=== PATIENT | male | born 1960 | race Caucasian/White ===

== ENCOUNTER 2019-01-01 03:43 | Inpatient (IN) ==
[2018-12-20 07:05] LABS: URINE SOURCE VOIDED
[2018-12-20 07:07] LABS: BASO# 0.01 X1000 (0.0-0.2); BASO% 0.2 % (0.0-0.8); EOS# 0.12 X1000 (0.0-0.7); EOS% 2.2 % (0.0-10.0); HEMATOCRIT 41.4 % (42.0-52.0); LYMPH# 1.69 X1000 (1.2-3.4); LYMPH% 31.6 % (20.5-51.1); MCH 32.8 PG (27-31); MCHC 36.2 g/dL (33-37); MCV 90.6 FL (81-99); MONO# 0.39 X1000 (0.11-0.59); MONO% 7.3 % (1.7-9.3); MPV 8.7 FL (7.4-10.4); NEUT# 3.13 X1000 (1.4-6.5); NEUT% 58.7 % (42.2-75.2); PLT 216 X1000 (130-400); RBC 4.57 XMIL (4.7-6.1); RDW 12.7 % (11.5-14.5); WBC 5.34 X1000 (4.8-10.8)
[2018-12-20 07:10] LABS: BILIRUBIN URINE NEGATIVE (NEGATIVE); BLOOD URINE TRACE (NEGATIVE); COLOR YELLOW; GLUCOSE URINE NEGATIVE (NEGATIVE); KETONE URINE NEGATIVE (NEGATIVE); LEUKOCYTES URINE TRACE (NEGATIVE); NITRITE URINE NEGATIVE (NEGATIVE); PH URINE 6.5; PROTEIN URINE NEGATIVE (NEGATIVE); SP GRAVITY URINE 1.018; TURBIDITY URINE CLEAR (CLEAR); UROBILINOGEN URINE NORMAL (NORMAL)
[2018-12-20 07:11] LABS: UR EPITHELIAL CELLS <10 /HPF (<10); URINE BACTERIA 1+ /HPF; URINE RBC <10 /HPF (<10)
--- NOTE | 2018-12-20 07:12 | EKG Report ---
Test Performed on : 12/20/2018 06:54:41 AM Test Reason : PAT Blood Pressure : / mmHG Vent. Rate : 064 BPM Atrial Rate : 064 BPM P-R Int : 182 ms QRS Dur : 090 ms QT Int : 408 ms P-R-T Axes : 041 050 037 degrees QTc Int : 420 ms Normal sinus rhythm. Normal ECG When compared with ECG of 21-JUN-2018 07:41, No significant change was found Confirmed by Gurwinder GONZALEZ, Fred Palma ([id number]) on 12/20/2018 1:40:53 PM
[2018-12-20 07:14] LABS: INR 0.99; PROTIME 13.9 Seconds (11.0-16.0)
[2018-12-20 07:15] LABS: PTT 32.4 Seconds (22.3-41.8)
[2019-01-01] MEDS ORDERED: REGLAN ONE (06:04)
[2019-01-01] MEDS ORDERED: PEPCID ONE (06:04)
[2019-01-01] MEDS ORDERED: COLACE ONE (06:04)
[2019-01-01] MEDS ORDERED: CELEBREX ONE (06:05)
[2019-01-01] MEDS ORDERED: LYRICA ONE (06:05)
[2019-01-01] MEDS ORDERED: KEFZOL 1 GM/D5W 2 GM/100 ML IVPB ONE (06:05)
[2019-01-01] MEDS ORDERED: LR 1,000 ML ONE (06:05)
[2019-01-01] MEDS ORDERED: VERSED ONE ×2 (06:20→07:55)
[2019-01-01] MEDS ORDERED: FENTANYL ONE (06:20)
[2019-01-01] MEDS ORDERED: DIPRIVAN 1% ONE ×3 (06:20→08:55)
[2019-01-01] MEDS ORDERED: XYLOCAINE-MPF 2% ONE (06:22)
[2019-01-01] MEDS ORDERED: BENADRYL IV ONE (06:45)
[2019-01-01] MEDS ORDERED: BENADRYL ONE ×3 (06:54→10:42)
[2019-01-01] MEDS ORDERED: EPINEPHRINE ONE (06:54)
[2019-01-01] MEDS ORDERED: NEOSPORIN G.U. IRRIGANT ONE (06:57)
[2019-01-01] MEDS ORDERED: EXPAREL 1.3% ONE (06:57)
[2019-01-01] MEDS ORDERED: SENSORCAINE-MPF 0.5%/EPI 1:200,000 ONE (06:57)
[2019-01-01] MEDS ORDERED: TORADOL ONE (06:57)
[2019-01-01] MEDS ORDERED: DURAMORPH ONE (06:57)
[2019-01-01] MEDS ORDERED: CYKLOKAPRON 1,000 MG/NS 1,000 MG/100 ML IVPB ONE (06:57)
[2019-01-01] MEDS ORDERED: SODIUM CHLORIDE 0.9% ONE (06:57)
[2019-01-01 08:26] LABS: URINE SOURCE CATH
[2019-01-01] MEDS ORDERED: EPHEDRINE ONE (08:29)
[2019-01-01] MEDS ORDERED: OFIRMEV 1000 MG/ISOTONIC SOLN 1,000 MG/100 ML BOTTLE ONE (08:33)
[2019-01-01] MEDS ORDERED: ZOFRAN ONE (08:40)
[2019-01-01] MEDS ORDERED: DECADRON ONE (08:40)
[2019-01-01 08:42] LABS: BILIRUBIN URINE NEGATIVE (NEGATIVE); BLOOD URINE NEGATIVE (NEGATIVE); COLOR YELLOW; GLUCOSE URINE NEGATIVE (NEGATIVE); KETONE URINE NEGATIVE (NEGATIVE); LEUKOCYTES URINE NEGATIVE (NEGATIVE); NITRITE URINE NEGATIVE (NEGATIVE); PROTEIN URINE NEGATIVE (NEGATIVE); SP GRAVITY URINE 1.017; TURBIDITY URINE CLEAR (CLEAR); UROBILINOGEN URINE NORMAL (NORMAL)
[2019-01-01 08:44] LABS: UR EPITHELIAL CELLS <10 /HPF (<10); URINE BACTERIA NEGATIVE /HPF; URINE RBC <10 /HPF (<10); URINE WBC <10 /HPF (<10)
--- NOTE | 2019-01-01 10:06 | OPERATIVE NOTE ---
PROCEDURE DATE: 01/01/2019 PREOPERATIVE DIAGNOSIS: Left hip degenerative joint disease. POSTOPERATIVE DIAGNOSIS: Left hip degenerative joint disease. PROCEDURE PERFORMED: Left anterior total hip arthroplasty using [facility] size 11 high offset stem with a neutral neck length, 36 mm Biolox Delta Head, a hemispherical shell with two 6.5 cancellous screws superiorly of 40 and 30 mm, and a 36 mm inside diameter liner. ANESTHESIA: Spinal. SURGEON: Mart Fregoso MD. METAL SANDER: Venecia Feliz PA-C, who was present throughout the case. Her assistance was critical for exposure, placement implants, and wound closure. Her assistance greatly reduced anesthesia and operative time and improved efficiency in the OR. BLOOD LOSS: Minimal. DESCRIPTION OF PROCEDURE: The patient was brought to the operative suite and placed in supine position. After successful administration of spinal anesthesia, patient was placed on the OSI table in the usual position for left hip. The left hip was then prepped and draped in the usual sterile fashion. A longitudinal incision was made, beginning 3 cm distal and 3 cm lateral to the anterior superior iliac spine extending distally and slightly laterally 8 cm, dissected sharply through skin and subcutaneous tissue down to the tensor fascia. Tensor fascia was incised and dissected bluntly down deep tensor fascia. Deep tensor fascia was incised, and circumflex vessels were electrocauterized exposing the anterior capsule. A T capsulotomy was performed exposing the femoral neck. The femoral neck cut was made with an oscillating saw. The femoral head was removed with a power corkscrew. The labrum was resected. The acetabulum was serially reamed to 58 to accept a 58 cup. The 58 cup was then driven into place to proper amount of inclination and anteversion and two 6.5 cancellous screws of a 40 mm superiorly and 30 mm posterior-superiorly were placed and the 36 mm inside diameter acetabular liner was locked onto the shell. Attention was then directed to the femur. The femur was externally rotated, extended, adducted, and elevated out of the way with the hook on the OSI bed. The lateral neck was rongeured. The canal was serially broached to a size 11. A size 11 high offset neutral neck length 36 mm head was trialed, and found to be excellent leg length offset, and fit and fill of the stem and stability the hip. The hip was then dislocated. The definitive stem was seated on the femur, and the head was seated on the Cedeno taper. It was again reduced. It was again found to be in excellent position. The hip was copiously irrigated with normal saline containing irrigant, and then Vashe irrigation. The hip was copiously infiltrated with Exparel, including the posterior capsule, anterior capsule, anterior musculature, and subcutaneous tissue. A drain was placed deep to the tensor fascia. The anterior capsule was repaired with 0 V-Loc suture the tensor fascia was closed with a 0 V-Loc suture. Skin edge approximated with 2-0 Vicryl. Skin was closed with 4-0 Monocryl and a Prineo dressing. A sterile dressing was applied. The patient tolerated the procedure well without complication. At the end the procedure, all counts correct x2. The patient was transferred to the recovery room in stable condition. cc: Mart Fregoso MD
[2019-01-01] MEDS ORDERED: NS 1,000 ML ONE (10:22)
[2019-01-01] MEDS ORDERED: ZOFRAN IV PRN (11:37)
[2019-01-01] MEDS ORDERED: MORPHINE IV PRN (11:37)
[2019-01-01] MEDS ORDERED: VANCOMYCIN 1 GM/NS 1 GM/250 ML IVPB IV ONE (11:37)
[2019-01-01] MEDS ORDERED: AMBIEN PO PRN (11:37)
[2019-01-01] MEDS ORDERED: MILK OF MAGNESIA PO PRN (11:37)
[2019-01-01] MEDS: OXY IR PO PRN ×4 (13:19→23:04)
[2019-01-01] MEDS ORDERED: CYKLOKAPRON 1,000 MG in NS 100 ML IV ONE (14:00)
[2019-01-01] MEDS: ULTRAM PO SCH ×2 (15:51→21:05)
[2019-01-01] MEDS: KEFZOL 2 GM/D5W 2 GM/50 ML IVPB IV SCH ×2 (15:51→23:04)
[2019-01-01] MEDS: TYLENOL PO SCH ×2 (15:51→21:05)
[2019-01-01] MEDS ORDERED: PATIENT'S OWN MED PO SCH (21:00)
[2019-01-01] MEDS ORDERED: LIPITOR PO SCH (21:00)
[2019-01-01] MEDS: PERIDEX MT SCH (21:04)
[2019-01-01] MEDS: COENZYME Q10 PO SCH (21:05)
[2019-01-01] MEDS: COLACE PO SCH (21:06)
[2019-01-01] MEDS: LYRICA PO SCH (21:06)
[2019-01-01] MEDS: NS 1,000 ML IV SCH (21:06)
[2019-01-02] MEDS: NS 1,000 ML IV SCH (02:59)
[2019-01-02] MEDS: TYLENOL PO SCH ×2 (03:47→08:49)
[2019-01-02] MEDS: ULTRAM PO SCH ×2 (03:47→08:48)
[2019-01-02] MEDS ORDERED: XARELTO PO SCH (06:00)
[2019-01-02 06:11] LABS: HEMATOCRIT 31.8 % (42.0-52.0); HEMOGLOBIN 11.2 g/dL (14.0-18.0)
[2019-01-02 06:35] LABS: AGAP 11; BUN 17 mg/dL (8-22); CALCIUM 7.8 mg/dL (8.8-10.2); CHLORIDE 102 mmol/L (98-107); COSMO 279; ESTIMATED GFR > 60; GLUCOSE 132 mg/dL (70-104); POTASSIUM 4.4 mmol/L (3.5-5.1); SODIUM 138 mmol/L (136-145); TCO2 25 mmol/L (25-35)
[2019-01-02] MEDS: OXY IR PO PRN (07:12)
[2019-01-02 07:56] VITALS: BP 137/82
--- NOTE | 2019-01-02 08:30 | DISCHARGE SUMMARY ---
ADMISSION DATE: 01/01/2019 DISCHARGE DATE: 01/02/2019 DISCHARGE DIAGNOSIS: Left hip degenerative joint disease, status post left anterior total hip arthroplasty. DISCHARGE MEDICATION: See discharge med list. DISPOSITION: The patient is discharged home with outpatient physical therapy. Instructed to return for any signs or signs of infection, deep venous thrombosis. Instructed return to see Dr. Fregoso next . HOSPITAL COURSE: On the day of admission, patient underwent a left anterior total hip arthroplasty. His postoperative course was unremarkable. At discharge, he is afebrile, tolerating regular diet, able to ambulate with physical therapy. His wound is clean, dry, intact without sign of infection. He is discharged home in stable condition. He was instructed to follow up as described above. cc: Mart Fregoso MD
[2019-01-02] MEDS: LYRICA PO SCH (08:49)
[2019-01-02] MEDS: COENZYME Q10 PO SCH (08:49)
[2019-01-02] MEDS: COLACE PO SCH (08:49)
[2019-01-02] MEDS: PERIDEX MT SCH (08:50)
[2019-01-02] MEDS ORDERED: MOBIC PO SCH (09:00)
[2019-01-02] MEDS ORDERED: HYDROCHLOROTHIAZIDE PO SCH (09:00)
[2019-01-02] MEDS ORDERED: DECADRON IV ONE (09:00)
[2019-01-02] MEDS ORDERED: DIOVAN PO SCH (09:00)
[2019-01-02] MEDS ORDERED: PEPCID PO SCH (09:00)
[2019-01-02] MEDS ORDERED: CLARITIN PO SCH (09:00)
[2019-01-02] MEDS ORDERED: THERA M PLUS PO SCH (09:00)
== END 2019-01-02 10:30 | disposition home or self-care (01) | DRG 470 ==
LOC: SURHOLD 03:43 → 4N 11:16
PROVIDERS: ADMIT Orthopaedic Surgery; ATTEND Orthopaedic Surgery
CPT/HCPCS: 76000; 80048; 81001; 85014; 85018; 85025; 85610; 85730; 86850; 86900; 86901; 88304; 88311; 93005; 93010; 94761; 94799; 97116; 97162; 97530; A9270; C9290; J0131; J0171; J0690; J1100; J1200; J1885; J2250; J2274; J2275; J2405; J3010; J7030; J7120; Q9974